=== PATIENT | male | born 1940 ===

== ENCOUNTER 2019-03-31 09:58 | Emergency (ER) | payer OTHER, BC ==
[2019-03-31 10:04] VITALS: BMI 27.8
[2019-03-31 11:22] LABS: BASO % 0.6 % (0-2.0); EOS % 0.5 % (0-4.5); HEMATOCRIT 36.4 % (35.4-49); HEMOGLOBIN 11.8 GM/dL (11.7-16.9); LYMPH % 8.7 % (8-40); MCH 26.3 pg (25.7-33.7); MCHC 32.4 g/dl (32.0-35.9); MEAN CELL VOLUME 81.3 fl (80-96); MONO % 2.7 % (3.8-10.2); NEUT % 87.5 % (42.8-82.8); PLATELET COUNT 194 K/MM3 (134-434); RBC 4.48 M/mm3 (4.00-5.60); RDW 17.5 % (11.9-15.9); WHITE BLOOD COUNT 4.4 K/mm3 (4.0-10.0)
--- NOTE | 2019-03-31 11:23 | EKG ---
Test Reason : Blood Pressure : / mmHG Vent. Rate : 062 BPM Atrial Rate : 062 BPM P-R Int : 166 ms QRS Dur : 132 ms QT Int : 488 ms P-R-T Axes : 010 -21 027 degrees QTc Int : 495 ms NORMAL SINUS RHYTHM RIGHT BUNDLE BRANCH BLOCK MINIMAL VOLTAGE CRITERIA FOR LVH, MAY BE NORMAL VARIANT ABNORMAL ECG NO PREVIOUS ECGS AVAILABLE Confirmed by PADMINI BLANCO MD ([id number]) on 03/31/2019 11:23:01 AM Referred By: Confirmed By:PADMINI BLANCO MD
[2019-03-31 11:34] LABS: INR 1.23 (0.83-1.09); PROTHROMBIN TIME (PATIENT) 14.6 SEC (9.7-13.0)
[2019-03-31 11:55] LABS: ALBUMIN 2.6 g/dl (3.4-5.0); ALK PHOS 59 U/L (45-117); ANION GAP 6 MMOL/L (8-16); BILIRUBIN,TOTAL 0.3 mg/dL (0.2-1); BLOOD UREA NITROGEN 14.5 mg/dL (7-18); CALCIUM 8.1 mg/dL (8.5-10.1); CHLORIDE 113 mmol/L (98-107); CO2 23 mmol/L (21-32); GLUCOSE,RANDOM 207 mg/dL (74-106); POTASSIUM 3.7 mmol/L (3.5-5.1); SGOT/AST 14 U/L (15-37); SGPT/ALT 22 U/L (13-61); SODIUM 142 mmol/L (136-145); TOT PROT 5.6 g/dl (6.4-8.2)
--- NOTE | 2019-03-31 12:42 | PDOC ---
Documentation entered by Keke Velarde SCRIBE, acting as scribe for Penny Simms MD. Penny Simms MD: This documentation has been prepared by the Prachi maldonado Adrianna, SCRIBE, under my direction and personally reviewed by me in its entirety. I confirm that the documentation accurately reflects all work, treatment, procedures, and medical decision making performed by me. History of Present Illness - General Chief Complaint: Lightheaded Stated Complaint: DIZZY/NAUSEA Time Seen by Provider: 03/31/19 10:27 History Source: Patient Exam Limitations: No Limitations - History of Present Illness Initial Comments: The patient is a 79 year old male, with a significant PMH of multiple myelomas, HTN, HLD, and chronic leg wounds, who presents to the ED for evaluation of dizziness since last night. Patient notes that he was on the computer last night , when he suddenly felt woozy and not like himself. Upon lying down in bed, he began experiencing room-spinning dizziness that was exacerbated with lying on his right side or looking to the right. Upon waking up this morning, he notes the dizziness remained so he called Dr. Julio who advised he come to the ED for further evaluation. Patient notes he has had similar episodes of dizziness in the past which typically resolve when he goes to sleep, but was concerned today as it was still present upon waking up. He denies any LOC, and reports feeling slightly better while in the ED. He endorses a slight NOVAK, for which he took a Tylenol this morning. Patient notes he had a cold 2 weeks ago, and still has a lingering dry cough and sniffles. Denies fever, chills, chest pain, SOB, nausea, vomit, abdominal pain, diarrhea, constipation, dysuria, hematuria, changes in vision, blurred vision, weakness, numbness/tingling, changes in speech. Allergies: Sulfa Surgical History: Cataract excision Social History: Occasional EtOH use. Denies tobacco or illicit drug use PCP: Dr. Davis ([facility]) Plastics: Dr. Julio Exterior Door Installer: Dr. Lam ([facility]) Is this a multiple visit Asthma Patient?: No Past History - Past Medical History Allergies/Adverse Reactions: Allergies Allergy/AdvReac Type Severity Reaction Status Date / Time No Known Allergies Allergy Verified 03/31/19 12:07 Home Medications: Ambulatory Orders Candesartan Cilexetil 40 mg PO DAILY 07/29/18 Dexamethasone 4 mg PO DAILY 07/29/18 Lovastatin 40 mg PO DAILY 07/29/18 Nexium 40 mg PO DAILY 07/29/18 Revlimid 10 mg PO DAILY 07/29/18 Zometa - IV ASDIR 07/29/18 Rivaroxaban [Xarelto -] 20 mg PO DAILY 12/16/18 COPD: No Diabetes: No GI Disorders: Yes HTN: Yes Hypercholesterolemia: Yes Other medical history: chronic wounds - Psycho Social/Smoking Cessation Hx Smoking History: Never smoked Have you smoked in the past 12 months: No Review of Systems - Review of Systems Comments:: GENERAL/CONSTITUTIONAL: No fever or chills. No weakness. HEAD, EYES, EARS, NOSE AND THROAT: +Sniffles (2/2 cold). No change in vision. No ear pain or discharge. No sore throat. CARDIOVASCULAR: No chest pain or shortness of breath. RESPIRATORY: +Dry cough (2/2 cold). No wheezing, or hemoptysis. GASTROINTESTINAL: No nausea, vomiting, diarrhea or constipation. GENITOURINARY: No dysuria, frequency, or change in urination. MUSCULOSKELETAL: No joint or muscle swelling or pain. No neck or back pain. SKIN: No rash NEUROLOGIC: +Room-spinning dizziness. +Slight headache. No loss of consciousness or change in strength/sensation. ENDOCRINE: No increased thirst. No abnormal weight change. HEMATOLOGIC/LYMPHATIC: No anemia, easy bleeding, or history of blood clots. ALLERGIC/IMMUNOLOGIC: No hives or skin allergy. *Physical Exam - Vital Signs Last Vital Signs Temp Pulse Resp BP Pulse Ox 97.7 F 65 16 157/74 100 03/31/19 10:01 03/31/19 10:01 03/31/19 10:01 03/31/19 10:01 03/31/19 10:01 - Physical Exam Comments: GENERAL: The patient is in no acute distress. HEAD: Normal with no signs of trauma. EYES: PERRLA, EOMI, sclera anicteric, conjunctiva clear. ENT: Ears normal, nares patent, oropharynx clear without exudates. Moist mucous membranes. NECK: Normal range of motion, supple without lymphadenopathy, JVD, or masses. LUNGS: Breath sounds equal, clear to auscultation bilaterally. No wheezes, and no crackles. HEART:Regular rate and rhythm, normal S1 and S2 without murmur, rub or gallop. ABDOMEN: +Obese abdomen (possibly 2/2 steroid use). Soft, nontender, normoactive bowel sounds. No guarding, no rebound. No masses palpable. EXTREMITIES: Normal range of motion, no edema. No clubbing or cyanosis. No erythema, or tenderness. NEUROLOGICAL: Cranial nerves II through XII grossly intact. Alert, awake, appropriate. No deficits to light touch and temperature in face, upper extremities and lower extremities. No motor deficits in the in face, upper extremities and lower extremities. No pronator drift. Normoreflexic in the upper and lower extremities. Normal speech. Toes are down-going bilaterally. Gait is normal without ataxia. MUSCULOSKELETAL: Back non-tender to palpation, no CVA tenderness SKIN: Warm, Dry, normal turgor, no rashes or lesions noted. ED Treatment Course - LABORATORY CBC & Chemistry Diagram: 03/31/19 11:05 03/31/19 11:05 - ADDITIONAL ORDERS Additional order review: Laboratory Results 03/31/19 03/31/19 03/31/19 11:05 11:05 11:05 PT with INR 14.60 H INR 1.23 H Sodium Potassium Chloride Carbon Dioxide Anion Gap BUN Creatinine Est GFR (CKD-EPI)AfAm Est GFR (CKD-EPI)NonAf Random Glucose Calcium Magnesium 1.5 L Total Bilirubin AST ALT Alkaline Phosphatase Creatine Kinase Troponin I Total Protein Albumin Blood Type A POSITIVE Antibody Screen Negative 03/31/19 11:05 PT with INR INR Sodium 142 Potassium 3.7 Chloride 113 H Carbon Dioxide 23 Anion Gap 6 L BUN 14.5 Creatinine 1.0 Est GFR (CKD-EPI)AfAm 83.18 Est GFR (CKD-EPI)NonAf 71.77 Random Glucose 207 H Calcium 8.1 L Magnesium Total Bilirubin 0.3 AST 14 L ALT 22 Alkaline Phosphatase 59 Creatine Kinase 69 Troponin I < 0.02 Total Protein 5.6 L Albumin 2.6 L Blood Type Antibody Screen 03/31/19 11:05 RBC 4.48 MCV 81.3 MCHC 32.4 RDW 17.5 H MPV 9.0 Neutrophils % 87.5 H Lymphocytes % 8.7 Monocytes % 2.7 L Eosinophils % 0.5 Basophils % 0.6 - RADIOLOGY Radiology Studies Ordered: Category Date Time Status CHEST X-RAY PORTABLE* [RAD] Stat Radiology 03/31/19 10:28 Completed Radiograph Interpretation: EXAM#: TYPE/EXAM: RESULT: [id number] RAD/CHEST X-RAY PORTABLE* Chest pain rule out infiltrate. Impression. No evidence of active pulmonary disease. Reported By: Marco Antonio Lyon MD 03/31/19 11:33 Medical Decision Making - Medical Decision Making 03/31/19 12:31 Mr. Almanza is a 79-year-old male with a history of multiple myeloma, hypertension, hyperlipidemia who presents emergency department for evaluation of vertigo. Patient states he is previously had the symptoms, but when he becomes vertiginous he typically goes to sleep and when he wakes in the morning his symptoms have resolved. This morning however when he awoke his symptoms persisted. He denies any chest pain, he denies palpitations. He notes worsening of his vertigo when he looks to the right/turns his head to the right. Denies headache. He denies changes in his speech. He denies focal weakness or numbness. He denies recent travel NEURO: Mental status: The patient is oriented x3. Cranial nerves: Cranial nerves II through XII are intact Motor: The upper extremities are 5 over 5 in all muscle groups. The lower extremities are 5 over 5 in all muscle groups. Sensation: Sensation is intact to light touch throughout. Cerebellar: Pejvob-ukdnad-mxpa is normal in both upper extremities. Heel-knee- mcghee is normal in both lower extremities. Reflexes: 2+ and symmetric in the upper and lower extremities. Gait: Normal. Heel and toe walking are normal. Tandem gait is normal. EKG: Normal sinus rhythm, rate of 62 bpm, axis is normal, intervals are normal, right bundle branch block, LVH 03/31/19 12:39 Laboratory Tests 03/31/19 03/31/19 03/31/19 11:05 11:05 11:05 WBC 4.4 Hgb 11.8 Hct 36.4 Plt Count 194 INR 1.23 H BUN 14.5 Creatinine 1.0 Creatine Kinase 69 Troponin I < 0.02 03/31/19 12:39 Case reviewed with patient's primary physician He is in agreement with discharge. Patient given copies of labs and x-ray. Chest x-ray does not clearly demonstrate an infiltrate, therefore will not give antibiotics. We will give a prescription for meclizine in the event of a recurrence of patient's vertigo Clinical impression: Vertigo, initial presentation Discharge - Discharge Information Problems reviewed: Yes Clinical Impression/Diagnosis: Vertigo Condition: Stable Disposition: HOME - Admission No - Additional Discharge Information Prescription Drug Monitoring Program (I-STOP) results: I-STOP not reviewed - Follow up/Referral Referrals: ON STAFF,NOT [Primary Care Provider] - - Patient Discharge Instructions Patient Printed Discharge Instructions: Vertigo Additional Instructions: Thank you for coming into the emergency department today. Please be sure to follow-up with your primary care physician within 2 to 3 days. I have prescribed you meclizine that you can take if you feel vertigo again. Please feel free to return to emergency department for any other concerns or complaints. Please continue all your home medications. - Post Discharge Activity
[2019-03-31 13:44] VITALS: BP 175/79; PULSE 63; TEMP 98
== END 2019-03-31 13:44 | disposition home or self-care (01) ==
LOC: JER 09:58 → SUPCPDRO 09:58 → JER 13:44
DX: R42 Dizziness and giddiness (principal); K92.9 Disease of digestive system, unspecified; E78.00 Pure hypercholesterolemia, unspecified; L08.9 Local infection of the skin and subcutaneous tissue, unspecified
CPT/HCPCS: 36415; 71045-TC-FY; 80053; 82550; 83735; 84484; 85025; 85610; 86850; 86900; 86901; 93005; 93010; 99284-25; A6209; G0463-25